=== PATIENT | female | born 1960 | race Caucasian/White ===

== ENCOUNTER 2016-11-03 14:22 | Emergency (ER) | payer BC ==
[2016-11-03 14:35] VITALS: BP 146/104; PULSE 95; TEMP 98.6; BMI 19.1
[2016-11-03] MEDS ORDERED: diphenhydrAMINE HCL 25 MG CAPSULE (FP) PO ONE ×2 (14:36→14:39)
--- NOTE | 2016-11-03 14:43 | PDOC ---
History of Present Illness - General History Source: Patient Exam Limitations: No Limitations - History of Present Illness Initial Comments: 11/03/16 15:09 The patient is a 56 year old female with past medical history of hypertension and kidney stones who presents to the ED after sustaining multiple wasp stings about an hour ago. The patient states that [place] when she walked into a wasp nest. They began to swarm around her, got stuck in her hair and stung her primarily on her scalp, arms, neck and back. In the ED, she complains of a burning sensation to the stings. She denies any anaphylaxis, itching, throat swelling, sob, n/v, change in swallowing/speech. The patient reports taking two tylenol just prior to arrival in the ED. She denies any recent fever, chills, nausea, vomiting, diarrhea, chest pain or shortness of breath. PCP: Simone Mckeon <Inez Silva - Last Filed: 11/03/16 15:09> <Chucho Villarreal - Last Filed: 11/04/16 07:18> - General Chief Complaint: Bite Stated Complaint: BEE STING Time Seen by Provider: 11/03/16 14:25 Past History <Inez Silva - Last Filed: 11/03/16 15:09> - Past Medical History Anemia: No Asthma: No Cancer: No Cardiac Disorders: No CVA: No COPD: No CHF: No Dementia: No Diabetes: No GI Disorders: No Disorders: Yes (KIDNEY STONES) HTN: Yes Hypercholesterolemia: No Liver Disease: No Psychiatric Problems: Yes (anxiety) Seizures: No Thyroid Disease: No - Surgical History Abdominal Surgery: No Appendectomy: No Cardiac Surgery: No Cholecystectomy: No Lung Surgery: No Neurologic Surgery: No Orthopedic Surgery: No - Psycho/Social/Smoking Cessation Hx Anxiety: No Suicidal Ideation: No Smoking History: Never smoked Have you smoked in the past 12 months: No Information on smoking cessation initiated: No Hx Alcohol Use: No Drug/Substance Use Hx: No Substance Use Type: Alcohol Hx Substance Use Treatment: No <Chucho Villarreal - Last Filed: 11/04/16 07:18> - Past Medical History Allergies/Adverse Reactions: Allergies Allergy/AdvReac Type Severity Reaction Status Date / Time Sulfa (Sulfonamide AdvReac Intermediate Nausea Verified 11/03/16 14:23 Antibiotics) Home Medications: Ambulatory Orders Amlodipine Besylate 5 mg PO DAILY tablet 08/19/13 Red Yeast Rice 600 mg PO BID tablet 08/27/13 Calcium Carbonate/Vitamin D3 [Calcium + Vitamin D Tablet] 1 each PO BID Denosumab [Prolia] 60 mg SQ ASDIR 12/16/14 Review of Systems - Review of Systems Able to Perform ROS?: Yes Comments:: 11/03/16 15:09 CONSTITUTIONAL: No reported: Fever, Chills, Diaphoresis, Generalized Weakness, Malaise, Loss of Appetite HEENT: No reported: Rhinorrhea, Nasal Congestion, Throat Pain, Throat Swelling, Difficulty Swallowing, Mouth Swelling, Ear Pain, Eye Pain, Visual Changes CARDIOVASCULAR: No reported: Chest Pain, Syncope, Palpitations, Irregular Heart Rate, Lightheadedness, Peripheral Edema RESPIRATORY: No reported: Cough, Shortness of Breath, SOB with Exertion, Orthopnea, Wheezing , Stridor, Hemoptysis GASTROINTESTINAL: No reported: Abdominal pain, Abdominal Distension, Nausea, Vomiting, Diarrhea, Constipation, Melena, Hematochezia GENITOURINARY: No reported: Dysuria, Frequency, Urgency, Hesitancy, Flank Pain, Genital Pain MUSCULOSKELETAL: No reported: Myalgia, Arthralgia, Joint Swelling, Back pain, Neck Pain SKIN: Reported: multiple wasp stings to the scalp, arms, neck and back with burning sensation No reported: Rash, Itching, Pallor HEMEATOLOGIC/IMMUNOLOGIC: No reported: Easy Bleeding, Easy Bruising, Lymphadenopathy, Frequent infections ENDOCRINE: No reported: Unexplained Weight Gain, Unexplained Weight Loss, Heat Intolerance , Cold Intolerance NEUROLOGIC: No reported: Headache, Focal Weakness, Paresthesias, Vertigo, Lightheadedness, Unsteady Gait, Seizure, Mental Status Changes, Incontinence PSYCHIATRIC: No reported: Anxiety, Depression All Other Systems: Reviewed and Negative <Inez Silva - Last Filed: 11/03/16 15:09> *Physical Exam - Vital Signs Last Vital Signs Temp Pulse Resp BP Pulse Ox 98.6 F 95 H 20 146/104 98 11/03/16 14:23 11/03/16 14:23 11/03/16 14:23 11/03/16 14:23 11/03/16 14:23 - Physical Exam Comments: 11/03/16 15:10 GENERAL: The patient is awake, alert, and fully oriented, Nontoxic - in no acute distress. HEAD: Normocephalic, atraumatic. EYES: extraocular movements intact, sclera anicteric, conjunctiva clear. ENT: Normal voice, Moist mucous membranes, no posterior parygeal swelling/ edema. . NECK: Normal range of motion, supple LUNGS: Breath sounds equal, clear to auscultation bilaterally. No wheezes, no rhonchi, no rales. HEART: Regular rate and rhythm, normal S1 and S2 without murmur, rub or gallop. EXTREMITIES: Normal range of motion, no edema. No clubbing or cyanosis. No cords, erythema, or tenderness. NEUROLOGICAL: No facial assymetry, Normal speech, PSYCH: Normal mood, normal affect. SKIN: mild erythema/induration on various locations on lateral hand, forearm, neck, back, scalp. <[email or web address] - Last Filed: 11/03/16 15:09> - Vital Signs Last Vital Signs Temp Pulse Resp BP Pulse Ox 98.6 F 95 H 20 146/104 98 11/03/16 14:23 11/03/16 14:23 11/03/16 14:23 11/03/16 14:23 11/03/16 14:23 <Chucho Villarreal - Last Filed: 11/04/16 07:18> ED Treatment Course - Medications Given in the ED: ED Medications Discontinued Medications Generic Name Dose Route Start Last Admin Trade Name Freq PRN Reason Stop Dose Admin Diphenhydramine HCl 25 mg 11/03/16 14:36 11/03/16 14:40 Benadryl - PO 11/03/16 14:37 25 mg ONCE ONE Administration <ShiraInez - Last Filed: 11/03/16 15:09> Medical Decision Making - Medical Decision Making multiple stings/bites, no stingers present/visible during examination no prior history of wasp/bee/insect allergies pt monitored i [facility] for an hr and pt rquested to go home. will have pt return for any more severe symptoms no other signs of anaphylaxis/alelrgy including edema, voice changes, n/v, wheezing/sob pt feeling improved w/ benadryl return precautions discussed I discussed the physical exam findings, ancillary test results and final diagnoses with the patient. I answered all of the patient's questions. The patient was satisfied with the care received and felt comfortable with the discharge plan and treatment plan. The patient will call their primary care physician within 24 hours to arrange follow-up and will return to the Emergency Department with any new, persistent or worsening symptoms. A portion of this note was documented by scribe services under my direction. I have reviewed the details of the note, within reason, and agree with the documentation with the following case summary and management plan written by me <Chucho Villarreal - Last Filed: 11/04/16 07:18> *DC/Admit/Observation/Transfer - Attestations Scribe Attestion: 11/03/16 15:10 Documentation prepared by Inez Silva, acting as medical technologist chemistry for Chucho Villarreal MD. <Inez Silva - Last Filed: 11/03/16 15:09> - Discharge Dispostion Admit: No <Chucho Villarreal - Last Filed: 11/04/16 07:18> Diagnosis at time of Disposition: Insect bite Qualifiers: Encounter type: initial encounter Qualified Code(s): W57.XXXA - Bitten or stung by nonvenomous insect and other nonvenomous arthropods, initial encounter - Discharge Dispostion Disposition: HOME Condition at time of disposition: Improved - Referrals Referrals: [facility] [Provider Group] - Patient Instructions Printed Discharge Instructions: DI for Insect Bites and Stings Additional Instructions: Return to the emergency department immediately with ANY new, persistent or worsening symptoms including any shortness of breath, difficulty swallowing, vomiting, abdominal pain or any other concerns. Take Benadryl for any itching. You can put ice on it to minimize swelling. Use overthe counter hydrocortisone to reduce inflammation. You MUST call and follow up with your doctor in 2-3 days for further evaluation of your symptoms. Results were discussed with you. Please make sure your doctor reviews the results of your emergency evaluation. Print Language: LAO
== END 2016-11-03 15:29 | disposition home or self-care (01) ==
LOC: FER 14:22
DX: T63.441A Toxic effect of venom of bees, accidental (unintentional), initial encounter (principal); Y92.9 Unspecified place or not applicable; I10 Essential (primary) hypertension; F41.9 Anxiety disorder, unspecified; Z88.2 Allergy status to sulfonamides; Z87.442 Personal history of urinary calculi
CPT/HCPCS: 99281-25

== ENCOUNTER 2020-09-27 11:10 | Emergency (ER) | payer BC ==
[2020-09-27 11:36] VITALS: BP 129/80; PULSE 76; TEMP 98.3; BMI 20.2
[2020-09-27] MEDS ORDERED: IBUPROFEN 600 MG TABLET (FP) PO ONE ×2 (11:41→11:53)
== END 2020-09-27 12:33 | disposition home or self-care (01) ==
LOC: FER 11:10
DX: M76.61 Achilles tendinitis, right leg (principal)
CPT/HCPCS: 99283-25